=== PATIENT | female | born 1990 | race Caucasian/White ===

== ENCOUNTER 2017-10-19 21:04 | Emergency (ER) | payer MEDICAID ==
[~2017-10-19] VITALS: Ht 172.7 cm; Wt 65.8 kg
[2017-10-19 21:20] VITALS: BP 109/78
[2017-10-19] MEDS ORDERED: ACETAMINOPHEN ES 500 MG TABLET ONE (22:17)
--- NOTE | 2017-10-19 22:18 | NUR ---
PT TO CT.
--- NOTE | 2017-10-19 22:29 | NUR ---
PT RETURNED FROM CT.
[2017-10-19] MEDS ORDERED: ACETAMINOPHEN 325 MG TABLET PO ONE (22:30)
--- NOTE | 2017-10-20 00:02 | NUR ---
PT D/C BY STEVEN KOEHLER PT GIVEN ACI AND PRESCRIPTION
== END 2017-10-20 00:06 | disposition home or self-care (01) ==
LOC: ER 21:11
DX: S09.90XA Unspecified injury of head, initial encounter (principal); R42 Dizziness and giddiness; R20.2 Paresthesia of skin; Z88.0 Allergy status to penicillin; Z98.890 Other specified postprocedural states; W01.198A Fall on same level from slipping, tripping and stumbling with subsequent striking against other object, initial encounter; Y93.89 Activity, other specified; Y92.89 Other specified places as the place of occurrence of the external cause; Y99.8 Other external cause status
CPT/HCPCS: 70450-TC; 84703-TC; A4606; Z7610